=== PATIENT | female | born 1965 | race Caucasian/White ===

== ENCOUNTER → 2019-10-18 17:40 | Outpatient (CLI) | payer OTHER, SELFPAY ==
--- NOTE | ~2019-10-18 | XR_ITS ---
XR knee LT 3V, XR knee RT 3V 10/18/2019 18:12 Indication: Knee pain. Procedure: 3 views of each knee Comparison: No prior studies for comparison. Findings: No fracture, subluxation or dislocation. No significant joint space narrowing. No joint eff usion. No foreign bodies. Impression: 1: No significant bone or joint abnormality. Reviewed, dictated and finalized at location A. Impression: 1: No significant bone or joint abnormality. Impression: 1: No significant bone or joint abnormality.
== END ==
PROVIDERS: PCP Physician Assistant; Visit Provider Physician Assistant
DX: M25.561 Pain in right knee (principal); M25.562 Pain in left knee
CPT/HCPCS: 73562

== ENCOUNTER 2020-01-04 08:19 | Outpatient (CLI) | payer OTHER, SELFPAY ==
--- NOTE | ~2020-01-04 | MM_ITS ---
EXAMINATION: MM screening [facility] BI w [facility] HISTORY: Screening mammogram TECHNIQUE: Craniocaudal and mediolateral oblique 3-D tomosynthesis images were obtained and synthetic 2-D images were generated. CAD analysis was submitted and interpreted. COMPARISON: 12/17/2018, 12/15/2017, 09/09/2016, 03/19/2016, 03/13/2016 BREAST PARENCHYMAL COMPOSITION: The breasts are heterogeneously dense, which may obscure small masses . FINDINGS: There is no evidence of suspicious mass, calcification, or architectural distortion to sugg est malignancy in either breast. There has been no suspicious interval change. IMPRESSION: 1. No mammographic evidence of malignancy. 2. Recommend routine screening mammography in one year. BI-RADS Category 1: Negative Reviewed, dictated and finalized at location A.
== END 2020-01-04 08:20 | disposition home or self-care (01) ==
LOC: ANHIMG 08:22
PROVIDERS: PCP Physician Assistant; Visit Provider Obstetrics & Gynecology
DX: Z12.31 Encounter for screening mammogram for malignant neoplasm of breast (principal)
CPT/HCPCS: 77063; 77067

== ENCOUNTER → 2020-09-13 10:58 | Outpatient (CLI) | payer OTHER, SELFPAY ==
--- NOTE | ~2020-09-13 | US_ITS ---
EXAMINATION: US soft tissue UE LT EXAM DATE: 09/13/2020 11:12 INDICATION: R22.32 - Localized swelling, mass and lump, left upper limb. States lump in antecubital f ronald, noticeably more with exercise. TECHNIQUE: Multiple grayscale and Doppler images of the symptomatic left arm region were obtained (by a technologist who performed the scan) and subsequently reviewed. There is no prior study for monica dudley. FINDINGS: Scanning in the left antecubital area of concern demonstrates normal appearing subcutaneous fat and u nderlying musculature. No mass or abscess identified. IMPRESSION: 1. Unremarkable ultrasound exam. Reviewed, dictated and finalized at location B.
== END ==
PROVIDERS: PCP Family Medicine; Visit Provider Physician Assistant
DX: R22.32 Localized swelling, mass and lump, left upper limb (principal)
CPT/HCPCS: 76882

== ENCOUNTER → 2021-01-03 15:23 | Outpatient (CLI) | payer OTHER, SELFPAY ==
--- NOTE | ~2021-01-03 | XR_ITS ---
XR chest 2V DATE: 01/03/2021 15:52 INDICATION: Cough TECHNIQUE: 2 views, PA and lateral projections COMPARISON: None FINDINGS: Normal heart size. No hilar or mediastinal enlargement. No pulmonary infiltrate or consolid ation, pleural effusion or pulmonary vascular congestion or pneumothorax. Diffuse osteopenia. IMPRESSION: No active cardiopulmonary disease Reviewed, dictated and finalized at location A.
== END ==
PROVIDERS: PCP Family Medicine; Visit Provider Physician Assistant
DX: R05 Cough (principal)
CPT/HCPCS: 71046

== ENCOUNTER 2021-01-15 08:25 | Outpatient (CLI) | payer OTHER, SELFPAY ==
--- NOTE | ~2021-01-15 | MM_ITS ---
EXAMINATION: MM screening [facility] w [facility] HISTORY: Screening mammogram TECHNIQUE: Craniocaudal and mediolateral oblique 3-D tomosynthesis images were obtained and synthetic 2-D images were generated. CAD analysis was submitted and interpreted. COMPARISON: 01/04/2020, 12/17/2018, 12/15/2017 bilateral digital screening mammogram examinations dated e 303 1. BREAST PARENCHYMAL COMPOSITION: The breasts are heterogeneously dense, which may obscure small masses . FINDINGS: There is no evidence of suspicious mass, calcification, or architectural distortion to sugg est malignancy in either breast. There has been no suspicious interval change. IMPRESSION: 1. No mammographic evidence of malignancy. 2. Recommend routine screening mammography in one year. BI-RADS Category 1: Negative Reviewed, dictated and finalized at location A.
== END 2021-01-15 08:26 | disposition home or self-care (01) ==
PROVIDERS: PCP Family Medicine; Visit Provider Obstetrics & Gynecology
DX: Z12.31 Encounter for screening mammogram for malignant neoplasm of breast (principal)
CPT/HCPCS: 77063; 77067

== ENCOUNTER 2021-04-22 12:14 | Outpatient (CLI) | payer OTHER, SELFPAY ==
--- NOTE | ~2021-04-22 | MMUS_ITS ---
EXAMINATION: MM diagnostic [facility] w [facility], US breast RT limited HISTORY: Palpable lump at the 12:00 location of the right breast. TECHNIQUE: Craniocaudal, mediolateral, and mediolateral oblique 3-D tomosynthesis images of the lisha ts were performed and synthetic 2-D images were generated. CAD analysis was submitted and interpreted . High resolution limited right breast ultrasound was performed. COMPARISON: 01/15/2021, 01/04/2020, 12/17/2018, 12/08/2013 BREAST PARENCHYMAL COMPOSITION: The breasts are heterogeneously dense, which may obscure small masses . FINDINGS: MAMMOGRAPHIC FINDINGS: There is no evidence of suspicious mass, calcification, or architectural distortion in either breast to suggest malignancy. There has been no suspicious interval change. No mammographic correlate is id entified for the reported palpable thickening of the right breast. ULTRASOUND: There is a 4 mm x 3 mm oval, circumscribed, parallel, hypoechoic mass with no posterior features or i nternal vascularity at the 12:00 location 3 cm from the nipple in the right breast which is decreased in size since comparison examinations. No suspicious mass is identified. IMPRESSION: 1. No suspicious mammographic or sonographic correlate is identified for the reported increased right breast density. Further evaluation at this time should be based on clinical assessment. Continued fo llow-up physical examination is recommended. 2. Recommend routine screening mammography in one year. BI-RADS Category 2: Benign finding(s). 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 No suspicious mammographic or sonographic correlate is identified for the re ported increased right breast density. Further evaluation at this time should b e based on clinical assessment. Continued follow-up physical examination is rec ommended. 2. Recommend routine screening mammography in one year. BI-RADS Category 2: Benign finding(s).
== END 2021-04-22 12:15 | disposition home or self-care (01) ==
LOC: ANHIMG 12:15
PROVIDERS: PCP Family Medicine; Visit Provider Obstetrics & Gynecology
DX: N63.15 Unspecified lump in the right breast, overlapping quadrants (principal)
CPT/HCPCS: 76642; 77062; 77066; G0279

== ENCOUNTER → 2021-06-19 15:57 | Outpatient (CLI) | payer OTHER, SELFPAY ==
--- NOTE | ~2021-06-19 | XR_ITS ---
EXAMINATION: XR chest 2V EXAM DATE: 06/19/2021 16:18 INDICATION: Cough, unspecified . TECHNIQUE: Frontal and lateral projections of the chest obtained and reviewed. Comparison is made to prior examination from 01/03/2021. FINDINGS: The lungs are hyperinflated which can be seen with chronic obstructive pulmonary disease ( a clinical diagnosis of functional impairment), but is not diagnostic of it. The lungs are clear. Th ere are no pleural effusions. The cardiomediastinal silhouette is within normal limits. There is no pneumothorax suspected. The bones and soft tissues are unremarkable. IMPRESSION: 1. No acute cardiopulmonary findings. 2. Hyperinflation. Reviewed, dictated and finalized at location B. [employer]ATION WORKER HOSING MACHINERY
== END ==
PROVIDERS: PCP Family Medicine; Visit Provider Family Medicine
DX: R05.9 Cough, unspecified (principal)
CPT/HCPCS: 71046

== ENCOUNTER 2022-02-28 10:17 | Outpatient (CLI) | payer OTHER, SELFPAY ==
--- NOTE | ~2022-02-28 | MM_ITS ---
EXAMINATION: MM screening [facility] w [facility] HISTORY: Screening TECHNIQUE: Craniocaudal and mediolateral oblique 3-D tomosynthesis images were obtained and synthetic 2-D images were generated. CAD analysis was submitted and interpreted. COMPARISON: Comparison to multiple prior studies sequentially, with oldest reviewed study dated 11/2017. BREAST PARENCHYMAL COMPOSITION: The breasts are heterogeneously dense, which may obscure small masses FINDINGS: There is no evidence of suspicious mass, calcification, or architectural distortion to sugg est malignancy in either breast. There has been no suspicious interval change. IMPRESSION: 1. No mammographic evidence of malignancy. 2. Recommend routine screening mammography in one year. BI-RADS Category 1: Negative Reviewed, dictated and finalized at location A.
== END 2022-02-28 10:18 | disposition home or self-care (01) ==
LOC: ANHIMG 10:19
PROVIDERS: PCP Family Medicine; Visit Provider Obstetrics & Gynecology
DX: Z12.31 Encounter for screening mammogram for malignant neoplasm of breast (principal)
CPT/HCPCS: 77063; 77067

== ENCOUNTER 2023-04-07 15:10 | Outpatient (CLI) | payer OTHER, SELFPAY ==
--- NOTE | ~2023-04-07 | MM_ITS ---
EXAMINATION: MM screening [facility] w [facility] HISTORY: Screening mammogram TECHNIQUE: Craniocaudal and mediolateral oblique 3-D tomosynthesis images were obtained and synthetic 2-D images were generated. CAD analysis was submitted and interpreted. COMPARISON: 02/28/2022 bilateral screening mammogram 04/22/2021 bilateral diagnostic mammogram and right Limited breast ultrasound examination 01/15/2021, 01/04/2020 bilateral screening mammogram examinations BREAST PARENCHYMAL COMPOSITION: The breasts are heterogeneously dense, which may obscure small masses . FINDINGS: There is no evidence of suspicious mass, calcification, or architectural distortion to sugg est malignancy in either breast. There has been no suspicious interval change. IMPRESSION: 1. No mammographic evidence of malignancy. 2. Recommend routine screening mammography in one year. 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
== END 2023-04-07 15:11 | disposition home or self-care (01) ==
PROVIDERS: PCP Family Medicine; Visit Provider Obstetrics & Gynecology
DX: Z12.31 Encounter for screening mammogram for malignant neoplasm of breast (principal)
CPT/HCPCS: 77063; 77067

== ENCOUNTER 2024-08-29 11:28 | Outpatient (CLI) | payer OTHER, SELFPAY ==
--- NOTE | ~2024-08-29 | US_ITS ---
Pelvic ultrasound. Clinical History: Postmenopausal bleeding Technique: Realtime transabdominal and transvaginal scanning of the pelvis was performed. Color flow Doppler and Doppler spectral analysis were performed. Findings: The uterus is anteverted. The endometrial stripe has a thickness of 4 mm. No focal mass is identified. Neither ovary seen. No adnexal mass seen. There is no evidence of free fluid in the cul de sac. Impression: No abnormal endometrial thickening. Neither ovary seen. Reviewed, dictated and finalized at location M. Impression: No abnormal endometrial thickening. Neither ovary seen.
== END 2024-08-29 11:29 | disposition home or self-care (01) ==
LOC: MICIMG 11:29
PROVIDERS: PCP Nurse Practitioner Family; Visit Provider Nurse Practitioner Family
DX: N95.0 Postmenopausal bleeding (principal)
CPT/HCPCS: 76830; 76856

== ENCOUNTER 2024-09-07 10:08 | Outpatient (CLI) | payer OTHER, SELFPAY ==
--- NOTE | ~2024-09-07 | MM_ITS ---
EXAMINATION: MM screening bryan BI w royal HISTORY: Screening TECHNIQUE: Craniocaudal and mediolateral oblique 3-D tomosynthesis images were obtained and synthetic 2-D images were generated. CAD analysis was submitted and interpreted. COMPARISON: Comparison to multiple prior studies sequentially, with oldest reviewed study dated 01/2019. BREAST PARENCHYMAL COMPOSITION: Dense: The breasts are heterogeneously dense, which may obscure small masses FINDINGS: There is no evidence of suspicious mass, calcification, or architectural distortion to sugg est malignancy in either breast. There has been no suspicious interval change. IMPRESSION: 1. No mammographic evidence of malignancy. 2. Recommend routine screening mammography in one year. BI-RADS Category 1: Negative Reviewed, dictated and finalized at location A.
--- OUTSIDE RECORDS SUMMARY | 2024-09-07 11:20 | XMS_ITS | Referral Summary ---
Author Organization [facility] Address [address] [place] [address] Care Team Providers Care Erosion Control Coordinator Name Role Phone Flavio Guerrero MD Primary Care Provider [phone] Allergies Active Allergy Reactions Criticality Noted Date Comments Erythromycin Stomach upset Low 01/19/2020 Prednisone Shortness of breath,Anxiety High 01/19/20 20 Medications irbesartan-hydro chlorothiazide (AVALIDE) 150-12.5 mg per tablet Take 1 tablet by mouth daily 11/30/2019 Active diclofenac sodium (VOLTAREN) 1 % gel Apply 4 grams to left knee four times a day 5 Tube 2 01/19/2020 Active Active Problems Problem Noted Date Diagnosed Date Pes anserinus bursitis of right knee 02/16/2020 Lipoma of left shoulder 02/16/2020 Pes anserinus bursitis of left knee 01/19/2020 Social History Tobacco Use Types Packs/Day Years Used Date Smoking Tobacco: Never Alcohol Use Standard Drinks/Week Comments Yes 0 (1 standard drink = 0.6 oz pur e alcohol) social Personal Safety Answer Date Recorded Getting School Help Needed Not on file 07/25 Comments Unknown Sex and Gender Information Value Date Recorded Sex Assigned at Not on file Legal Sex Female 9:05 AM CDT Gender Identity Not on file Sexual Orientation Not on file Last Filed Vital Signs Vital Sign Reading Time Taken Comments Blood Pressure - - Pulse - - Temperature - - Respiratory Rate - - Oxygen Saturation - - Inhaled Oxygen Concentration - - Weight 83.9 kg (185 lb) 02/16/2020 3:25 PM CDT Height 160 cm (5' 3 ) 02/16/2020 3:25 PM CDT Body Mass Index 32.77 02/16/2020 3:25 PM CDT Plan of Treatment Not on file Insurance Care Teams Erosion Control Coordinator Relationship Specialty Start Date End Date Flavio Guerrero MD [address] [place] [address] PCP - General Family Medicine 12/30/19
--- OUTSIDE RECORDS SUMMARY | 2024-09-07 11:20 | XMS_ITS | Data Portability ---
Author Organization [facility] [place], Main Office Address [address] [place] [address] Assessment No assessment recorded. Plan of Treatment Reminders Order Date Submit Date Provider Last Modified By Organization Details Last Modified Time Details Appointments None recorded. Lab HbA1c (hemoglobin A1c), blood [email or web address] [place] [address], [address] [place] [address], [address], 3 11:48:24 vitamin D, 25-hydroxy, total, serum [email or web address] [place] [address], [address] [place] [address], [address], 3 11:48:41 CBC w/ auto diff [email or web address] [place] [address], [address] [place] [address], [address], 3 11:47:42 BMP, serum or plasma [email or web address] [place] [address], [address] [place] [address], [address], 3 11:48:01 lipid panel, serum [email or web address], [address] [place] [address], [address], 3 11:36:18 Referral None recorded. Procedures None recorded. Surgeries None recorded. Imaging None recorded. Medication Orders tizanidine 4 mg tablet [address] [facility] #2510, [address] [place], [address], 4 11:20:27 irbesartan 150 mg-hydrochl orothiazide 12.5 mg tablet 2023 024 [facility] [address] [place] [address], [address], 4 11:20:28 fluticasone propionate 50 mcg/actuati on nasal spray,suspe nsion 2023 024 [facility] [address] [place], [address], 4 11:29:32 esomeprazol e magnesium 20 mg capsule,del ayed release 2023 024 [facility] [address] [place], [address], 4 11:26:13 irbesartan 150 mg-hydrochl orothiazide 12.5 mg tablet 2023 024 [facility], [address] [place] [address], [address], 4 11:26:13 fluconazole 150 mg tablet 2022 023 [email or web address] [id number] [facility]/Pharmacy #2510, [address] [place] [address], [address], 4 11:10:08 Patient TargetsNo targets recorded. Patient InstructionsNo instructions recorded. Reason for Referral None Reported. Results Created Date Observation Date Name Description Value Unit Range Abnormal Flag Note LastModifiedBy Organization Detail LastModifiedTime 07/17/19 23 07/16/2022 CBC/C OMPLE TE BLD COUNT W/DIF F white blood cells 8.1 x10'3 /uL 4.2-10 .8 Not Available [facility] (Lab) [address] [place], [address], 07/16/2022 19:32:51 07/17/19 23 07/16/2022 CBC/C OMPLE TE BLD COUNT W/DIF F red blood cells 4.20 x10'6 /uL 3.80-5 .20 Not Available [facility] (Lab) [address] [place], [address], 07/16/2022 19:32:51 07/17/19 23 07/16/2022 CBC/C OMPLE TE BLD COUNT W/DIF F hemoglobin 13.0 g/dL 12.0-1 5.6 Not Available [facility] (Lab) [address] [place], [address], 07/16/2022 19:32:51 07/17/19 23 07/16/2022 CBC/C OMPLE TE BLD COUNT W/DIF F hematocrit 39.5 % 35.7-4 5.7 Not Available [facility] (Lab) [address] [place], [address], 07/16/2022 19:32:51 07/17/19 23 07/16/2022 CBC/C OMPLE TE BLD COUNT W/DIF F mean red cell volume 94.0 fL 82.0-9 9.0 Not Available [facility] (Lab) [address] [place], [address], 07/16/2022 19:32:51 07/17/19 23 07/16/2022 CBC/C OMPLE TE BLD COUNT W/DIF F mean red cell hemoglobin 31.0 pg 27.0-3 3.0 Not Available [facility] (Lab) [address] [place], [address], 07/16/2022 19:32:51 07/17/19 23 07/16/2022 CBC/C OMPLE TE BLD COUNT W/DIF F mean RBC HGB concentratio n 32.9 g/dL 31.0-3 6.0 Not Available [facility] (Lab) [address] [place], [address], 07/16/2022 19:32:51 07/17/1907/16/2022 CBC/C OMPLE TE BLD COUNT W/DIF F red cell distribution width 13.1 % 11.8-1 5.5 Not Available [facility] (Lab) [address] [place], [address], 07/16/2022 19:32:51 07/17/19 23 07/16/2022 CBC/C OMPLE TE BLD COUNT W/DIF F platelets 337 x10'3 /uL 150-40 0 Not Available [facility] (Lab) [address] [place], [address], 07/16/2022 19:32:51 07/17/19 23 07/16/2022 CBC/C OMPLE TE BLD COUNT W/DIF F mean platelet volume 10.5 fL 9.0-12 .4 Not Available [facility] (Lab) [address] [place], [address], 07/16/2022 19:32:51 07/17/1907/16/2022 CBC/C OMPLE TE BLD COUNT W/DIF F neutrophils 59.2 % 39.0-7 2.0 Not Available [facility] (Lab) [address] [place], [address], 07/16/2022 19:32:51 07/17/19 23 07/16/2022 CBC/C OMPLE TE BLD COUNT W/DIF F lymphocytes 30.8 % 16.0-4 7.0 Not Available [facility] (Lab) [address] [place], [address], 07/16/2022 19:32:51 07/17/19 23 07/16/2022 CBC/C OMPLE TE BLD COUNT W/DIF F monocytes 6.7 % 5.0-12 .0 Not Available [facility] (Lab) [address] [place], [address], 07/16/2022 19:32:51 07/17/1907/16/2022 CBC/C OMPLE TE BLD COUNT W/DIF F eosinophils 2.3 % 1.0-7. 0 Not Available [facility] (Lab) [address] [place], [address], 07/16/2022 19:32:51 07/17/19 23 07/16/2022 CBC/C OMPLE TE BLD COUNT W/DIF F basophils 0.6 % 0.0-2. 0 Not Available [facility] (Lab) [address] [place], [address], 07/16/2022 19:32:51 07/17/1907/16/2022 CBC/C OMPLE TE BLD COUNT W/DIF F immature granulocytes 0.4 % 0.00-0 .50 Not Available [facility] (Lab) [address] [place], [address], 07/16/2022 19:32:51 07/17/19 23 07/16/2022 CBC/C OMPLE TE BLD COUNT W/DIF F neutrophils, absolute count 4.79 x10'3 /uL 1.5-8. 0 Not Available [facility] (Lab) [address] [place], [address], 07/16/2022 19:32:51 07/17/19 23 07/16/2022 CBC/C OMPLE TE BLD COUNT W/DIF F lymphocytes, absolute count 2.49 x10'3 /uL 1.07-3 .43 Not Available [facility] (Lab) [address] [place], [address], 07/16/2022 19:32:51 07/17/19 23 07/16/2022 CBC/C OMPLE TE BLD COUNT W/DIF F monocytes, absolute count 0.54 x10'3 /uL 0.29-0 .99 Not Available [facility] (Lab) [address] [place], [address], 07/16/2022 19:32:51 07/17/19 23 07/16/2022 CBC/C OMPLE TE BLD COUNT W/DIF F eosinophils, absolute count 0.19 x10'3 /uL 0.02-0 .53 Not Available [facility] (Lab) [address] [place], [address], 07/16/2022 19:32:51 07/17/19 23 07/16/2022 CBC/C OMPLE TE BLD COUNT W/DIF F basophils, absolute count 0.05 x10'3 /uL 0.01-0 .08 Not Available [facility] (Lab) [address] [place], [address], 07/16/2022 19:32:51 07/17/19 23 07/16/2022 CBC/C OMPLE TE BLD COUNT W/DIF F immature granulocytes ,absolute 0.03 x10'3 /uL 0.00-0 .05 Not Available [facility] (Lab) [address] [place], [address], 07/16/2022 19:32:51 07/17/19 23 07/16/2022 CBC/C OMPLE TE BLD COUNT W/DIF F nucleated red blood cells 0.0 % -0 Not Available [facility] (Lab) [address] [place], [address], 07/16/2022 19:32:51 07/17/19 23 07/16/2022 CBC/C OMPLE TE BLD COUNT W/DIF F NRBC# 0.00 x10'3 /uL Not Available [facility] (Lab) [address] [place], [address], 07/16/2022 19:32:51 07/17/19 23 07/16/2022 LIPID PANEL cholesterol 139 mg/dL 140-19 9 low NIH BRIANNE NSUS RECOM MENDA TION FOR NICO STERO L: ADULT CHILD LOW RISK: <200 <170 BORDE RLINE : <200- 239 ----- HIGH RISK: >240 >200 Not Available [facility] (Lab) [address] [place], [address], 07/16/2022 19:46:49 07/17/19 23 07/16/2022 LIPID PANEL triglyceride s 91 mg/dL 0-150 NIH BRIANNE NSUS REPOR T RECOM MENDA TION FOR TRIGL YCERI VINOD: ADULT CHILD LOW RISK: <150 ----- BODER LINE: 150-1 99 ----- HIGH RISK: >200 ----- Not Available [facility] (Lab) [address] [place], [address], 07/16/2022 19:46:49 07/17/19 23 07/16/2022 LIPID PANEL HDL cholesterol 61 mg/dL 40- Not Available [facility] (Lab) [address] [place], [address], 07/16/2022 19:46:49 07/17/19 23 07/16/2022 LIPID PANEL LDL cholesterol, calculated 60 mg/dL 0-130 NIH BRIANNE NSUS REPOR T RECOM MENDA TIONS FOR LDL: ADULT CHILD LOW RISK <130 <110 (OPTI MAL LDL) <100 ----- BORDE RLINE : 130-1 59 ----- HIGH RISK: >160 >130 A TRIGL YCERI DE RESUL T >400 INVAL IDATE S THE CALCU LATIO N FOR LDL FRACT IONAT ION - THE LDL RESUL T WILL NOT BE REPOR MELODY. Not Available [facility] (Lab) [address] [place], [address], 07/16/2022 19:46:49 07/17/19 23 07/16/2022 BASIC METAB OLIC PANEL sodium 138 mmol/ L 137-14 5 Not Available [facility] (Lab) [address] [place], [address], 07/16/2022 19:46:55 07/17/19 23 07/16/2022 BASIC METAB OLIC PANEL potassium 3.6 mmol/ L 3.5-5. 1 Not Available [facility] (Lab) [address] [place], [address], 07/16/2022 19:46:55 07/17/19 23 07/16/2022 BASIC METAB OLIC PANEL chloride 104 mmol/ L 98-107 Not Available [facility] (Lab) [address] [place], [address], 07/16/2022 19:46:55 07/17/19 23 07/16/2022 BASIC METAB OLIC PANEL carbon dioxide 27 mmol/ L 22-30 Not Available [facility] (Lab) [address] [place], [address], 07/16/2022 19:46:55 07/17/19 23 07/16/2022 BASIC METAB OLIC PANEL anion gap 10.6 mmol/ L 14-22 low Not Available [facility] (Lab) [address] [place], [address], 07/16/2022 19:46:55 07/17/19 23 07/16/2022 BASIC METAB OLIC PANEL glucose 99 mg/dL 70-99 Not Available [facility] (Lab) [address] [place], [address], 07/16/2022 19:46:55 07/17/19 23 07/16/2022 BASIC METAB OLIC PANEL BUN 14 mg/dL 8-19 Not Available [facility] (Lab) [address] [place], [address], 07/16/2022 19:46:55 07/17/19 23 07/16/2022 BASIC METAB OLIC PANEL creatinine 0.57 mg/dL 0.66-1 .25 low Not Available [facility] (Lab) [address] [place], [address], 07/16/2022 19:46:55 07/17/19 23 07/16/2022 BASIC METAB OLIC PANEL GFR >60 Refer ence Range : [place] ge GFR Healt hy Adult : >60 mL/mi n/1.7 3 m2 Chron ic Kidne y Disea se: 15-60 mL/mi n/1.7 3 m2 Kidne y Failu re: <15/m L/min /1.73 m2 www.n iddk. nih.g ov The MDRD study equat ion has not been valid ated in child aury <18 years of age; pregn ant women ; the elder ly >85 years of age; or in some racia l or ethni c subgr oups, such as Hispa nics. Outsi de the valid ated alison eters , estim ated GFR is less accur ate, requi ring clini nilda judgm ent on a case- by-ca se basis . Clini nilda inter preta tion for other races and ages must be made by the clini herlinda. The MDRD study equat ion has not been valid ated for the evalu ation of serum creat inine relat ed to nutri paola l statu s or medic ation usage . For perso ns <18 years of age, a pedia tric GFR calcu lator is avail able on the [facility] websi te: https ://richard forbes.archana bull/pr ofess ional s/kdo qi/gf r_cal culat or Not Available [facility] (Lab) [address] [place], [address], 07/16/2022 19:46:55 07/17/1907/16/2022 BASIC METAB OLIC PANEL calcium 9.6 mg/dL 8.4-10 .2 Not Available [facility] (Lab) [address] [place], [address], 07/16/2022 19:46:55 07/17/19 23 07/16/2022 VITAM IN D 25-HY DROXY vd25oh 26.7 NG/mL 30-100 low Vitam in D Statu s: Defic ient: <20 ng/mL Insuf ficie nt: 20-29 ng/mL Suffi cient : 30-10 0 ng/mL Not Available [facility] [address] [place], [address], 07/16/2022 20:08:51 07/17/19 23 07/17/2022 HEMOG LOBIN A1C HA1C 5.3 % 4.0-6. 0 Diabe jamshid Scree latricia Crite loida: <5.7% Consi stent with absen ce of diabe jamshid 5.7-6 .4% Consi stent with incre ased risk for diabe jamshid (pred iabet es) >OR=6 .5% Consi stent with diabe jamshid REFER ENCE: Diabe jamshid Care 2016, 39(Montez ppl.1 ):s13 -s22 Not Available [facility] (Lab) [address] [place], [address], 07/17/2022 09:41:33 07/07/19 24 07/08/2023 LIPID PANEL , STAND JULIO cholesterol, total 131 mg/dL <200 normal Not Available [facility] [address] [address] [place], [address], 07/08/2023 03:22:25 07/07/19 24 07/08/2023 LIPID PANEL , STAND JULIO HDL cholesterol 60 mg/dL > or = 50 normal Not Available [facility] [address] [address] [place], [address], 07/08/2023 03:22:25 07/07/19 24 07/08/2023 LIPID PANEL , STAND JULIO triglyceride s 80 mg/dL <150 normal Not Available [facility] [address] [address] [place], [address], 07/08/2023 03:22:25 07/07/19 24 07/08/2023 LIPID PANEL , STAND JULIO LDL-choleste rol 55 mg/dL _(nilda c) normal Refer ence range : <100 Manuel able range <100 mg/dL for prima ry preve ntion ; <70 mg/dL for patie nts with CHD or diabe tic patie nts with > or = 2 CHD risk facto rs. LDL-C is now calcu lated using the [facility] n-Hop kins calcu evelyn n, which is a valid ated novel metho d provi henry sylvia r accur acy than the Fried antwan equat ion in the estim ation of LDL-C . Iwona damian SS et al. PURVI. 2013; 310(1 9): 2061- 2068 (http ://ed ucati on.Spazzles. [facility]/f aq/FA Q164) Not Available [facility] [address] [address] [place], [address], 07/08/2023 03:22:25 07/07/19 24 07/08/2023 LIPID PANEL , STAND JULIO chol/HDLC ratio 2.2 (calc ) <5.0 normal Not Available [facility] [address] [address] [place], [address], 07/08/2023 03:22:25 07/07/19 24 07/08/2023 LIPID PANEL , STAND JULIO non HDL cholesterol 71 mg/dL _(nilda c) <130 normal For patie nts with diabe jamshid plus 1 major ASCVD risk facto r, treat ing to a non-H DL-C goal of <100 mg/dL (LDL- C of <70 mg/dL ) is consi dered a thera peuti c optio n. Not Available [facility] [address] [address] [place], [address], 07/08/2023 03:22:25 07/07/1907/08/2023 BASIC METAB OLIC PANEL glucose 92 mg/dL 65-99 normal Fasti ng refer ence inter tao Not Available [facility] [address] [place], [address], 07/08/2023 03:22:26 07/07/19 24 07/08/2023 BASIC METAB OLIC PANEL urea nitrogen (BUN) 16 mg/dL 7-25 normal Not Available [address], [address], 07/08/2023 03:22:26 07/07/19 24 07/08/2023 BASIC METAB OLIC PANEL creatinine 0.72 mg/dL 0.50-1 .03 normal Not Available [address], [address], 07/08/2023 03:22:26 07/07/19 24 07/08/2023 BASIC METAB OLIC PANEL eGFR 97 mL/mi n/1.7 3m2 > or = 60 normal Not Available [address], [address], 07/08/2023 03:22:26 07/07/19 24 07/08/2023 BASIC METAB OLIC PANEL BUN/creatini ne ratio SEE NOTE: (calc ) 6-22 Not Repor melody: BUN and Creat inine are withi n refer ence range . Not Available [address], [address], 07/08/2023 03:22:26 07/07/19 24 07/08/2023 BASIC METAB OLIC PANEL sodium 138 mmol/ L 135-14 6 normal Not Available [address], [address], 07/08/2023 03:22:26 07/07/19 24 07/08/2023 BASIC METAB OLIC PANEL potassium 3.8 mmol/ L 3.5-5. 3 normal Not Available [address], [address], 07/08/2023 03:22:26 07/07/19 24 07/08/2023 BASIC METAB OLIC PANEL chloride 102 mmol/ L 98-110 normal Not Available [address], [address], 07/08/2023 03:22:26 07/07/19 24 07/08/2023 BASIC METAB OLIC PANEL carbon dioxide 28 mmol/ L 20-32 normal Not Available [address], [address], 07/08/2023 03:22:26 07/07/19 24 07/08/2023 BASIC METAB OLIC PANEL calcium 9.6 mg/dL 8.6-10 .4 normal Not Available [address], [address], 07/08/2023 03:22:26 07/07/19 24 07/08/2023 CBC (INCL UDES DIFF/ PLT) white blood cell count 7.5 thous and/u L 3.8-10 .8 normal Not Available [address], [address], 07/08/2023 03:22:27 07/07/19 24 07/08/2023 CBC (INCL UDES DIFF/ PLT) red blood cell count 4.20 amber on/uL 3.80-5 .10 normal Not Available [address], [address], 07/08/2023 03:22:27 07/07/19 24 07/08/2023 CBC (INCL UDES DIFF/ PLT) hemoglobin 13.1 g/dL 11.7-1 5.5 normal Not Available [address], [address], 07/08/2023 03:22:27 07/07/19 24 07/08/2023 CBC (INCL UDES DIFF/ PLT) hematocrit 39.5 % 35.0-4 5.0 normal Not Available [address], [address], 07/08/2023 03:22:27 07/07/19 24 07/08/2023 CBC (INCL UDES DIFF/ PLT) MCV 94.0 fL 80.0-1 00.0 normal Not Available [address], [address], 07/08/2023 03:22:27 07/07/19 24 07/08/2023 CBC (INCL UDES DIFF/ PLT) MCH 31.2 pg 27.0-3 3.0 normal Not Available [address], [address], 07/08/2023 03:22:27 07/07/19 24 07/08/2023 CBC (INCL UDES DIFF/ PLT) MCHC 33.2 g/dL 32.0-3 6.0 normal Not Available [address], [address], 07/08/2023 03:22:27 07/07/19 24 07/08/2023 CBC (INCL UDES DIFF/ PLT) RDW 12.9 % 11.0-1 5.0 normal Not Available [address], [address], 07/08/2023 03:22:27 07/07/19 24 07/08/2023 CBC (INCL UDES DIFF/ PLT) platelet count 314 thous and/u L 140-40 0 normal Not Available [address], [address], 07/08/2023 03:22:27 07/07/19 24 07/08/2023 CBC (INCL UDES DIFF/ PLT) MPV 10.6 fL 7.5-12 .5 normal Not Available [address], [address], 07/08/2023 03:22:27 07/07/19 24 07/08/2023 CBC (INCL UDES DIFF/ PLT) absolute neutrophils 4193 cells /uL 1500-7 800 normal Not Available [address], [address], 07/08/2023 03:22:27 07/07/19 24 07/08/2023 CBC (INCL UDES DIFF/ PLT) absolute lymphocytes 2655 cells /uL 850-39 00 normal Not Available [address], [address], 07/08/2023 03:22:27 07/07/19 24 07/08/2023 CBC (INCL UDES DIFF/ PLT) absolute monocytes 413 cells /uL 200-95 0 normal Not Available [address], [address], 07/08/2023 03:22:27 07/07/19 24 07/08/2023 CBC (INCL UDES DIFF/ PLT) absolute eosinophils 180 cells /uL 15-500 normal Not Available [address], [address], 07/08/2023 03:22:27 07/07/19 24 07/08/2023 CBC (INCL UDES DIFF/ PLT) absolute basophils 60 cells /uL 0-200 normal Not Available [address], [address], 07/08/2023 03:22:27 07/07/19 24 07/08/2023 CBC (INCL UDES DIFF/ PLT) neutrophils 55.9 % normal Not Available [address], [address], 07/08/2023 03:22:27 07/07/19 24 07/08/2023 CBC (INCL UDES DIFF/ PLT) lymphocytes 35.4 % normal Not Available [address], [address], 07/08/2023 03:22:27 07/07/19 24 07/08/2023 CBC (INCL UDES DIFF/ PLT) monocytes 5.5 % normal Not Available [facility] [address] [place], [address], 07/08/2023 03:22:27 07/07/19 24 07/08/2023 CBC (INCL UDES DIFF/ PLT) eosinophils 2.4 % normal Not Available [facility] [address] [address] [place], [address], 07/08/2023 03:22:27 07/07/19 24 07/08/2023 CBC (INCL UDES DIFF/ PLT) basophils 0.8 % normal Not Available [facility] [address] [address] [place], [address], 07/08/2023 03:22:27 07/07/19 24 07/08/2023 VITAM IN D,25- OH,TO ISAAC,I A vitamin D,25-oh,tota l,ia 55 NG/mL 30-100 normal Vitam in D Statu s 25-OH Vitam in D: Defic iency : <20 ng/mL Insuf ficie ncy: 20 - 29 ng/mL Optim al: > or = 30 ng/mL For 25-OH Vitam in D testi ng on patie nts on D2-montez pplem entat ion and patie nts for whom quant itati on of D2 and D3 fract ions is requi red, the [facility] eD(TM ) 25-OH VIT D, (D2,D 3), LC/MS /MS is recom kyrie d: order code 37507 (roseanna ents >2yrs ). See Note 1 Note 1 For addit ional infor sachin melton refer to http: //elsy damian.Mikhail stDia gnost ics.c om/fa q/FAQ 199 (This link is being provi ded for infor michaela reyes/ queta arciniega purpo ses only. ) Not Available [facility] [address] [address] [address], [place], [address], 07/08/2023 03:22:28 07/07/19 24 07/08/2023 HEMOG LOBIN A1C hemoglobin A1C 5.4 %_of_ total _HGB <5.7 normal For the purpo se of scree latricia for the prese nce of diabe jamshid: <5.7% Consi stent with the absen ce of diabe jamshid 5.7-6 .4% Consi stent with incre ased risk for diabe jamshid (pred iabet es) > or =6.5% Consi stent with diabe jamshid This assay resul t is consi stent with a decre ased risk of diabe jamshid. Curre ntly, no conse nsus exist s regar henry use of hemog lobin A1c for diagn osis of diabe jamshid in child aury. Accor ding to Ameri can Diabe jamshid Assoc iatio n (ADA) guide lines , hemog lobin A1c <7.0% repre sents optim al contr ol in non-p regna nt diabe tic patie nts. Diffe rent metri cs may apply to speci fic patie nt popul ation s. Stand ards of Medic al Care in Diabe jamshid(A DA). This test was perfo rmed on the [facility]bot t Ar[employer] tect c8000 platf orm. Pleas e be advis ed that [facility] will move hemog lobin A1c testi ng to the Lanie platf orm soon. In gener al, direc t monica rison of the resul ts from diffe rent platf orms is not recom kyrie d. Not Available [facility] [address], [place], [address], 07/08/2023 03:22:29 04/07/20 23 04/07/2023 MAMMO , scree latricia, digit al, bilat eral No observ ation record ed. [address] [facility] [address], [place], [address], 07/20/2023 11:24:23 Result Notes None recorded. Problems Name Problem SNOMED Code Status Onset Date Resolution Date Notes Provider Name and Address Organization Details Recorded Time Essential hypertension 02712074 Active 2021 Not Available [facility] 3 00:27:20 Allergic rhinitis 76911433 Active 2022 Adela Hernandez MD [address], [place], [address] , [place] [facility] 3 11:14:58 Hyperglycemia 71558963 Active 2022 Aedla Hernandez MD [address], [address], [place], [address] , [place] [facility] 3 11:22:21 Vitamin D deficiency 10664907 Active 2022 Adela Hernandez MD [address], [place], [address] , [place] [facility] 3 11:22:43 COVID-19 135376161 Active 2022 Adela Hernandez MD [address], [place], [address] , [place] [facility] 3 13:17:34 Cough 57743896 Active 2022 Adela Hernandez MD [address], [place], [address] , [facility] 3 13:28:28 Candidiasis of vagina 72415987 Active 2022 MAX Tenorio [address], [place], [address] , [place] [facility] 3 10:41:03 Gastroesophag eal reflux disease 311612311 Active 2022 Adela Hernandez MD [address], [place], [address] , [place] [facility] 3 15:49:26 Gastroesophag eal reflux disease without esophagitis 499166532 Active 2023 Adela Hernandez MD [address], [place], [address] , [place] [facility] 4 07:36:16 Neck pain 18730757 Active 2023 MAREN Vizcarra [address], [address], [place], [address] , [facility] [employer] 4 11:10:38 Problem Notes None recorded. Procedures Surgical History None recorded. Imaging Results Imaging Date Name Status LastModified by Organiz ation Details LastModified Time 04/07/2023 MAMMO, screening, digital, bilateral completed [facility] [address], [place], [address], 07/20/2023 11:24:23 Procedure Notes None recorded. Medical Equipment None Reported. Allergies Allergen ID Allergen Name Allergen Category Reaction Reaction Severity Criticality Documentation Date Start Date Code Code System Note Provider Name and Address Organization Details Recorded Time 08484 prednison e medicatio n Not available Not available Not available 07/10/2022 8640 RxNorm anxie ty Not Available [facility] 3 00:28:07 62512 metronida zole medicatio n hives Not available Not available 07/10/2022 6922 RxNorm Not Available [facility] 3 00:28:07 60525 erythromy kate medicatio n other Not available Not available 07/10/2022 4053 RxNorm stoma ch cramp scan take zpack Not Available [facility] 3 00:28:08 52748 Erythroci n medicatio n Not available Not available Not available 07/10/2022 54921 3 RxNorm Not Available [facility] 3 00:28:08 33428 Paxlovid medicatio n hives Not available Not available 10/08/2022 49608 5 ANJELK Nevaeh Durand RN null, [facility] [employer] 3 10:19:44 Medications Name Sig Start Date Stop Date Status Note LastModified by Organization Details LastModified Time blood pressu solution kit active Not Available Not Available Not Available doxycycline hyclate 100 mg capsule 06/05 completed Not Available Not Available Not Available irbesartan 150 mg-hydrochl orothiazide 12.5 mg tablet 1 po qday 2023 active Not Available Not Available Not Avai lable azithromyci n 250 mg tablet TAKE 2 TABLETS BY MOUTH TODAY, THEN TAKE 1 TABLET DAILY FOR 4 DAYS 10/08 completed Not Available Not Available Not Available Lidocaine Viscous 2 % mucosal solution active Not Available Not Available Not Available tizanidine 4 mg tablet TAKE 1 TABLET BY MOUTH EVERY 6 HOURS active Not Available Not Available No t Available fluconazole 150 mg tablet TAKE 1 TABLET BY MOUTH EVERY DAY FOR 3 DAYS 07/19 completed Not Available Not Available Not Available benzonatate 200 mg capsule TAKE 1 CAPSULE BY MOUTH THREE TIMES DAILY NEEDED 07/19 completed Not Available Not Available Not Available prednisone 20 mg tablet Take 2 tablets every day by oral route for 5 days. 10/08 completed Not Available Not Available Not Available clobetasol 0.05 % topical cream APPLY TO AFFECTED VAGINAL AREA TWICE DAILY FOR 14 DAYS THEN ONCE A DAY FOR 1 TO 2 WEEKS active Not Available Not Available No t Available triamcinolo ne acetonide 0.5 % topical ointment 1 APPLIC TOPICALLY TWICE A DAY NEEDED FOR MILD IRRITATIO N active Not Available Not Available No t Available valacyclovi r 500 mg tablet TAKE 1 TABLET BY MOUTH EVERY 12 HOURS active Not Available Not Available No t Available benzonatate 100 mg capsule 06/05 completed Not Available Not Available Not Available dexamethaso ne 4 mg tablet Take 1 tablet twice a day by oral route for 5 days. 07/19 completed Not Available Not Available Not Available irbesartan 150 mg tablet TAKE 1 TABLET BY MOUTH EVERY DAY active Not Available Not Available No t Available methylpredn isolone 4 mg tablets in a dose pack 06/05 completed Not Available Not Available Not Available albuterol sulfate HFA 90 mcg/actuati on aerosol inhaler 06/05 completed Not Available Not Available Not Available fluticasone propionate 50 mcg/actuati on nasal spray,suspe nsion USE 2 SPRAYS IN EACH NOSTRIL DAILY active Not Available Not Available No t Available doxycycline hyclate 100 mg tablet TAKE 1 TABLET BY MOUTH TWICE A DAY FOR 7 DAYS 07/19 completed Not Available Not Available Not Available loratadine 10 mg tablet Take 1 tablet every day by oral route. active Not Available Not Available No t Available esomeprazol e magnesium 20 mg capsule,del ayed release TAKE 1 CAPSULE BY MOUTH EVERY DAY active Not Available Not Available No t Available dexlansopra zole 60 mg capsule,bip hase delayed release Take 1 capsule every day by oral route. 07/19 completed Not Available Not Available Not Available Paxlovid 300 mg (150 mg x 2)-100 mg tablets in a dose pack TAKE 1 DOSE BY MOUTH TWICE A DAY FOR 5 DAYS 07/19 completed Not Available Not Available Not Available Vitals Date Recorded Body height Body mass index (BMI) Body weight Body temperature Oxygen saturation Oxygen saturation in Arterial blood by Pulse oximetry Heart rate Systolic blood pressure Diastolic blood pressure Provider Name and Address Organization Details Last Updated DateTime 3 162.56 cm 32.8 kg/m2 05090.1 4 g 98.7 [degF] 100 % 100 % 80 /min 146 mm[Hg] 92 mm[Hg] Jm Wiggins CMA [facility] [employer] 3 11:03:45 Date Recorded Body height Body mass index (BMI) Body weight Body temperature Heart rate Oxygen saturation Oxygen saturation in Arterial blood by Pulse oximetry Systolic blood pressure Diastolic blood pressure Provider Name and Address Organization Details Last Updated DateTime 3 162.56 cm 32.4 kg/m2 79470.9 6 g 97.8 [degF] 95 /min 96 % 96 % 132 mm[Hg] 80 mm[Hg] Nevaeh Durand RN [facility] [employer] 3 10:18:44 Date Recorded Body height Provider Name an d Address Organization Details Last Updated DateTime 02/24/2023 162.56 cm Liss Corrales LPN [facility] [employer] [facility] 02/24/2023 12:25:09 Date Recorded Body height Body mass index (BMI) Body weight Body temperature Heart rate Oxygen saturation Oxygen saturation in Arterial blood by Pulse oximetry Systolic blood pressure Diastolic blood pressure Provider Name and Address Organization Details Last Updated DateTime 4 162.56 cm 31.8 kg/m2 99353.5 9 g 89.83 [degF] 73 /min 97 % 97 % 140 mm[Hg] 82 mm[Hg] Krysten Mejias RN [facility] [employer] [facility] 4 11:09:36 Date Recorded Body height Body mass index (BMI) Body weight Body temperature Heart rate Oxygen saturation Oxygen saturation in Arterial blood by Pulse oximetry Systolic blood pressure Diastolic blood pressure Provider Name and Address Organization Details Last Updated DateTime 4 162.56 cm 30.6 kg/m2 67420.4 4 g 98.4 [degF] 80 /min 100 % 100 % 140 mm[Hg] 84 mm[Hg] Liberty Cedeno RN [place] [facility] [place] [employer] [facility] 4 11:06:09 Social History Question Answer Notes LastModified by Organizat ion Details LastModified Time Tobacco Smoking Status Never Smoker Not Available [facility] 07/10/2022 00:26:14 What Is Your Level Of Alcohol Consumption? Occasional Information not available 10/08/2022 What Is Your Level Of Caffeine Consumption? Occasional Information not available 10/08/2022 What Type Of Diet Are You Following? REGULAR [id number] Information not available 07/10/2022 What Was The Date Of Your Most Recent Tobacco Screening? 07/20/2023 [email or web address] Information not available 07/20/2023 Do You Feel Stressed (tense, Restless, Nervous, Or Anxious, Or Unable To Sleep At Night)? [id number] Information not available 10/08/2022 Do You Use Any Illicit Or Recreational Drugs? No Information not available 10/08/2022 Sex: Unknown Functional Status None recorded. Mental Status None recorded. Family History Relationship Description Onset Age of this Age Resolved Age Notes LastModified by Organization Details LastModified Time Father Hypertensive disorder [id number] Not available 07/10/2022 00:26:41 Brother Hypertensive disorder [id number] Not available 07/10/2022 00:26:41 Brother Malignant tumor of pancreas 59 [id number] Not available 07/10/2022 00:26:41 Sister Hypertensive disorder [id number] Not available 07/10/2022 00:26:41 Medical History No medical history recorded. Gynecological History Statement/Question Response How many live births 1 Colposcopy Current Control Method Menopause Breast Problems no Discharge no Obstetrics History GPAL:G 1 P 0 0 0 1 Type Value Living 1 Total 1 Immunizations Vaccine Type Date Status Note Provider Nam e and Address Organization Details Recorded Time COVID-19, mRNA, LNP-S, PF, 30 mcg/0.3 mL dose 2 completed Not Available [facility] 07/10/2022 00:28:04 Influenza, split virus, quadrivalent, preservative 1 completed Not Available [facility] 07/10/2022 00:28:05 COVID-19, mRNA, LNP-S, PF, 30 mcg/0.3 mL dose 1 completed Not Available [facility] 07/10/2022 00:28:05 COVID-19, mRNA, LNP-S, PF, 30 mcg/0.3 mL dose 1 completed Not Available [facility] 07/10/2022 00:28:05 Influenza, split virus, quadrivalent, PF 2 completed Not Available [facility] 07/10/2022 00:28:05 Influenza, split virus, quadrivalent, PF 3 completed KIMBERLY Brown [place] [facility] 02/24/2023 12:32:23 Past Encounters Encounter ID Performer Location Encounter Start Date Encounter Closed Date Diagnosis/Indication Diagnosis SNOMED-CT Code Diagnosis ICD10 Code Diagnosis Note [id number] Adela Hernandez MD [facility] Primary Care [place] [address] [facility] [address] [place] [address] 06/05/2021 00:00:00 06/10/2021 17:57:14 [id number] Adela Hernandez MD [facility] Primary Care [place] [address] [facility] [address] [place] [address] 07/17/2021 00:00:00 07/17/2021 11:58:31 [id number] Adela Hernandez MD [facility] [place] [address] [facility] [address] [place] [address] 01/16/2022 00:00:00 01/16/2022 11:55:43 [id number] THOR Us [facility] Primary [facility] [place] [address] [facility] [address] [place] [address] 03/04/2022 00:00:00 03/04/2022 15:59:48 [id number] Adela Hernandez MD [facility] Primary Care [facility] [address] [facility] [address] [place] [address] 07/16/2022 10:57:04 07/16/2022 11:33:45 Adult health examination 533081937 Z00.00 Z13.220 Cologuard normal 08/01/2021 repeat 2024Sees yard specialist for paps, mammogram, DEXACheck fasting labsShingl es vaccine recommende dCovid bivalent booster recommende d Essential hypertension 57323328 I10 in excellent control per home readingsco ntinue daily exercise and irbesartan /hctz 150/12.5 mg daily Allergic rhinitis 763627 04 J30.9 can try otc fexofenadi ne 180 mg dailyif no improvemen t can do trial of fluticason e Hyperglycemia 93958618 R 73.9 Vitamin D deficiency 347 14055 E55.9 [id number] MAX Tenorio [facility] Primary Care [facility] [address] [facility] [address] [place] [address] 10/08/2022 10:08:52 10/08/2022 10:56:40 Suspected COVID-19 830790499 Z20.822 Never tested positive, suspect false neg result d/t pt having same sx as and length of sx.Reassur ed pt that she is outside the window of contagion at this time. Discussed at length that many covid sx (fatigue, cough, sob, bodyaches, loss sense of taste/smel l) may linger for an extended period of time. Discussed s/s that warrant emergent evaluation (high fever, worsening sob, new onset sx).Encour aged pt to try taking the dexamethas one to reduce sx. Candidiasis of vagina 72 456784 B37.31 New problemRev iewed the various causes of vaginal problems. Reviewed good vulvar/vag inal hygiene and ways to reduce symptoms. Advised to call if treatment is not helpful or if symptoms persist or recur. [id number] Adela Hernandez MD [facility] Primary Care [facility] [address] [facility] [address] [place] [address] 02/24/2023 12:24:12 02/24/2023 13:11:59 [id number] Adela Hernandez MD [facility] Primary Care [place] [address] [facility] [address] [place] [address] 07/20/2023 11:02:54 07/20/2023 11:36:26 Adult health examination 059271161 Z00.00 Z13.220 Cologuard normal 08/01/2021 repeat 2024Sees yard specialist for paps, mammogram, DEXACheck fasting labsShingl es vaccine recommende dRecommend yearly flu annually and covid booster Essential hypertension 50680578 I10 in excellent control per home readingsco ntinue daily exercise and irbesartan /hctz 150/12.5 mg daily Gastroesop hageal reflux disease without esophagitis 178381419 K21.9 stablerefi ll given Allergic rhinitis 195389 04 J30.9 try flonase + claritin or fexofenadi ne [id number] MAREN Vizcarra [facility] Primary Care Angi of[place] [address] [facility] [address] [place] [address] 01/20/2024 10:59:12 01/20/2024 11:23:09 Neck pain 13840950 M54.2 neck pain for the last couple monthstria l tizanidine Essential hypertension 00245274 I10 Health Concerns Section Related Observation LastModified by Organization Detai ls LastModified Time None Recorded Concern Status LastModified by Organization Details LastModified Time None Recorded Advance Directives Directive None Recorded Payers Encounter Date Sequence Insurance Name Policy Number Policy Junior Covered Member ID Junior Member ID Guarantor Name 07/16/2022 1 HENNA Alonso [id number] Ambika Alonso 10/08/2022 1 HENNA Alonso [id number] Ambika Greenvall 02/24/2023 1 HENNA Alonso [id number] Ambika Greenvall 07/20/2023 1 HENNA Alonso [id number] Ambika Greenvall 01/20/2024 1 HENNA Greenvall [id number] Ambika Alonso Notes Date Note Type Note Provider Name and Address Organization Details Recorded Time 07/16/2022 text/html Here for check up today. Home blood pressures are running 130s/80s, 110s/70s. She is taking her irbesartan/hctz 150/12.5 mg daily. Adela Hernandez MD [address] [facility] [address], [place], [address], [employer] 08/08/2022 12:02:31 10/08/2022 text/html 1. Pt in office with report that she has been sick for 3 weeks going on 4 weeks. States they got sick after coming home from their vacation at [place]. States tested positive for covid. States she had the same sx, but tested negative on home tests and PCR. Pt states she has had sore throat, cough, fatigue and brain fog. Pt states sx didn't improve with 2 rounds of abx. States she took the paxlovid and broke out in a rash and had to stop.2. Pt states she has developed a yeast infection from the abx. MAX Tenorio [address] [facility] [address], [place], [address], [employer] 10/08/2022 19:17:47 07/20/2023 text/html Here for wellness exam Adela Hernandez MD [address], [place], [address], [employer] 08/06/2023 07:36:28 01/20/2024 text/html pt is here for f/u MAREN Vizcarra [address], [place], [address], [employer] 01/20/2024 11:21:46 OBGyn Episode No OBEpisode recorded.
--- OUTSIDE RECORDS SUMMARY | 2024-09-07 11:21 | XMS_ITS | Clinical Summary ---
Author Organization [facility] Address [address] [place] [address] Care Team Providers Care Avionics Mechanic Name Role Phone Flavio Guerrero MD Primary Care Provider [phone] Allergies Active Allergy Reactions Criticality Noted Date [...] Pes anserinus bursitis of left knee 01/19/2020 Surgical History Surgery Date Site/Laterality Comments NO PAST SURGERIES Medical History Medical History Date Comments Hypertension Family History Medical History Relation Name Comments Gout Father Arthritis Mother Relation Name Status Comments Father Mother Social History Tobacco Use Types Packs/Day Years [...] on file Sexual Orientation Not on file Obstetrics History Last Filed Vital Signs Vital Sign Reading [...] Plan of Treatment Not on file Insurance [employer] [facility] HMO Care Teams Avionics Mechanic Relationship Specialty Start Date End Date Flavio Guerrero MD [address] [place] [address] PCP - General Family Medicine 12/30/19
--- OUTSIDE RECORDS SUMMARY | 2024-09-07 11:21 | XMS_ITS | Clinical Summary ---
Author Organization [facility] Care Team Providers Care Bilingual Instructor Name Role Phone Unavailable Primary Care Provider Unavailabl e Social History Tobacco Use Types Packs/Day Years Used Date Smoking Tobacco: Never Assessed Comments Unknown Sex and Gender Information Value Date Recorded Sex Assigned at Not on file Legal Sex Female 1:20 PM CDT Gender Identity Not on file Sexual Orientation Not on file Plan of Treatment Health Maintenance Due Date Last Done Comments Hepatitis C Virus (HCV) Screening 1965 TdaP Immunization 1965 Hepatitis B Immunization (1 of 3 - 19+ 3-dose series) 1984 Pap Smear 1986 Cervical Cancer Screening (CCS) 10/26/1995 HPV/Cotest 10/26/1995 Colonoscopy 2010 Colorectal Cancer Screening 2010 Cologuard 10/26/2015 Immunochemical Fecal Occult Blood 10/26/2015 Mammogram 10/26/2015 Pneumococcal Immunization (5 0+ years) (1 of 1 - PCV) 10/26/2015 Zoster Immunization (1 of 2) 10/26/2015 Influenza Immunization (#1) 01/10/202402/08, 02/25/2018 SARS-COV-2 Immunization (3 - season) 2024 08/14/2020, 07/23/2020 Respiratory Syncytial Virus (RSV) Immunization (Adult) (1 - 1-dose 75+ series) 2040 Meningococcal Immunization (ACWY) Aged Out No longer eligible b ased on patient's age to complete this topic Pneumococcal Immunization Combined Aged Out No longer eligible b ased on patient's age to complete this topic Rotavirus Immunization Aged Out No lo nger eligible based on patient's age to complete this topic
== END 2024-09-07 10:09 | disposition home or self-care (01) ==
LOC: ANHIMG 10:11
PROVIDERS: PCP Nurse Practitioner Family; Visit Provider Nurse Practitioner Family
DX: Z12.31 Encounter for screening mammogram for malignant neoplasm of breast (principal)
CPT/HCPCS: 77063; 77067

== ENCOUNTER 2025-03-06 08:11 | Outpatient (CLI) | payer OTHER, SELFPAY ==
--- NOTE | ~2025-03-06 | MMUS_ITS ---
EXAMINATION: US breast LT complete, MM diagnostic bryan LT w royal HISTORY: Nipple discharge TECHNIQUE: Additional 3-D tomosynthesis images of the left breast were performed and synthetic 2-D images were generated. CAD analysis was submitted and interpreted. High resolution complete left breast ultrasound was performed. COMPARISON: Comparison to multiple prior studies sequentially, with oldest reviewed study dated 01/04/2020. BREAST PARENCHYMAL COMPOSITION: Dense: The breasts are heterogeneously dense, which may obscure small masses FINDINGS: MAMMOGRAPHIC FINDINGS: The left breast is stable. No new masses, calcifications or architectural distortion ULTRASOUND: Complete US of all 4 quadrants of the left breast/s and retroareolar region was reviewed. At 1:00, 3 cm from the nipple there is a 5 mm cyst. At 7:00, 5 cm from the nipple there is a 5 mm cyst. At 9:00 in the subareolar location there is an oval hypoechoic circumscribed mass with parallel orientation and posterior acoustic enhancement. No internal vascularity. IMPRESSION: 1. Probable benign 6 mm mass of the left breast at 9:00 in the subareolar location. Additional simple cysts are present in the left breast. 2. Recommend 6 month follow-up Limited left breast ultrasound. BI-RADS category 3, probably benign findings. Reviewed, dictated and finalized at location B. IMPRESSION: 1. Probable benign 6 mm mass of the left breast at 9:00 in the subareolar locat ion. Additional simple cysts are present in the left breast. 2. Recommend 6 month follow-up Limited left breast ultrasound. BI-RADS category 3, probably benign findings.
== END 2025-03-06 08:12 | disposition home or self-care (01) ==
LOC: MICIMG 08:12
PROVIDERS: PCP Family Medicine; Visit Provider Surgery
DX: N60.02 Solitary cyst of left breast (principal); R92.8 Other abnormal and inconclusive findings on diagnostic imaging of breast
CPT/HCPCS: 76641; 77061; 77065; G0279

== ENCOUNTER 2025-03-30 12:29 | Outpatient (CLI) | payer OTHER, SELFPAY ==
--- NOTE | ~2025-03-30 | MR_ITS ---
MR breast BI wo/w con INDICATION:59 year old female presents for imaging evaluation of left nipple discharge. Prior evaluation of patient's nipple discharge with mammography and ultrasound completed on 03/06/2025 reviewed probable benign mass in the left breast at 9:00 subareolar location for which a short-term follow-up was recommended. TECHNIQUE: MRI of the breasts perform using standard protocol pre-and post IV contrast with the following sequences: Axial T2 STIR, axial T1, axial vibrant T1 with fat suppression precontrast and multiphasic postcontrast. MultiHance contrast was administered intravenously. COMPARISON: Mammogram and ultrasound dated 03/06/2025. FINDINGS: There is Heterogeneous fibroglandular tissue that demonstrates Mild and Symmetric enhancement. Right breast: There are no abnormalities on the precontrast sequences. There is minimal background parenchymal enhancement. No enhancing lesions following contrast administration. No areas of enhancement meeting threshold criteria on CAD analysis. Nipple areolar complex is normal in appearance. No evidence of signal abnormalities in the axillary or internal mammary node distributions. LEFT BREAST: There is a 1.4 cm enhancing lesion that has a linear appearance in the inferior slightly medial at anterior depth, approximately 2.4 cm posterior to the nipple (axial postcontrast image 194). This lesion demonstrates washout kinetics. Most likely this lesion represent an intraductal mass. There is moderate background parenchymal nodular enhancement. No other enhancing spiculated lesions following contrast administration. The nipple areolar complex is normal in appearance. No evidence of signal abnormalities in the axillary or internal mammary node distributions.] IMPRESSION: 1: Right breast: No MRI evidence of malignancy. 2. Left breast: 1.4 cm linear enhancing lesion in the inferior slightly medial location 2.4 cm posterior to the nipple. Most likely represent an intraductal mass. Further evaluation is advised. 3. The chest wall and axillary portion of the examination are unremarkable. RECOMMENDATION: Second Look ultrasound left breast. If this lesion is not apparent on the ultrasound examination, consideration should be given to MRI guided biopsy. BI-RADS Category 0: Incomplete: Needs additional imaging evaluation. Reviewed, dictated and finalized at location B. ION MACHINE OPERATOR IMPRESSION: 1: Right breast: No MRI evidence of malignancy. 2. Left breast: 1.4 cm linear enhancing lesion in the inferior slightly medial location 2.4 cm posterior to the nipple. Most likely represent an intraductal m ass. Further evaluation is advised. 3. The chest wall and axillary portion of the examination are unremarkable. RECOMMENDATION: Second Look ultrasound left breast. If this lesion is not apparent on the ultra sound examination, consideration should be given to MRI guided biopsy. BI-RADS Category 0: Incomplete: Needs additional imaging evaluation.
== END 2025-03-30 12:30 | disposition home or self-care (01) ==
PROVIDERS: PCP Family Medicine; Visit Provider Surgery
DX: R92.8 Other abnormal and inconclusive findings on diagnostic imaging of breast (principal)
CPT/HCPCS: 77049; A9577; C8908

== ENCOUNTER 2025-04-17 08:52 | Outpatient (CLI) | payer OTHER, SELFPAY ==
--- NOTE | ~2025-04-17 | US_ITS ---
PROCEDURE(S): US breast LT limited INDICATION(S): R92.8 - Other abnormal and inconclusive findings on diagnostic imaging. Second look after MR. COMPARISON(S): MR from March 30 and other older studies. TECHNIQUE: Grayscale and color Doppler imaging. FINDINGS: Sonography through the medial retroareolar region demonstrates the presence of a bilobed mass with mostly circumscribed margins. It is homogeneous in echotexture and has a maximum dimension of 12 mm. This appears to be oriented toward a duct and is thought to possibly lie in a duct. It probably accounts for the MR finding. IMPRESSION: Solid mass as described for which ultrasound-guided core biopsy is recommended. After marker placement, repeat MR is recommended to verify that the MR finding and the ultrasound finding represent the same structure. If they do not, MR guided biopsy may be necessary. BI-RADS 4 - Suspicious for malignancy. Tissue diagnosis is recommended. Reviewed, dictated and finalized at location B. TONE MACHINE OPERATOR IMPRESSION: Solid mass as described for which ultrasound-guided core biopsy is recommended. After marker placement, repeat MR is recommended to verify that the MR finding and the ultrasound finding represent the same structure. If they do not, MR gu ided biopsy may be necessary. BI-RADS 4 - Suspicious for malignancy. Tissue diagnosis is recommended.
== END 2025-04-17 08:53 | disposition home or self-care (01) ==
LOC: CHSIMG 08:53
PROVIDERS: PCP Family Medicine; Visit Provider Surgery
DX: N64.52 Nipple discharge (principal); R92.8 Other abnormal and inconclusive findings on diagnostic imaging of breast
CPT/HCPCS: 76642

== ENCOUNTER 2025-04-28 08:44 | Outpatient (CLI) | payer OTHER, SELFPAY ==
--- NOTE | ~2025-04-28 | MMUS_ITS ---
PROCEDURE: US breast biopsy LT w image, MM post biopsy diagnostic LT CLINICAL HISTORY: 59-year-old female with suspicious probable intraductal mass in the medial retroareolar region of the left breast presents for ultrasound- guided core needle biopsy procedure. COMPARISON: 04/17/2025 Following informed consent including risks, benefits, and possible complications, the patient was brought to the ultrasound suite. A time-out procedure was performed. A preliminary ultrasound of the left breast was performed, redemonstrating an hypoechoic mass with internal vascularity which appears intraductal in the medial subareolar region. The patient was prepped and draped in the usual sterile fashion. 1% lidocaine was instilled into the subcutaneous tissues. 1% lidocaine without epinephrine was injected into the deep tissues just inferior to the lesion. Approximately 15cc lidocaine was administered. A small skin poonam was made. Multiple core samples were obtained with a 14-gauge multi pass biopsy needle. A post biopsy metal marker was placed at the biopsy site. Postprocedural mammogram of the left breast in craniocaudal and mediolateral projections reveal the post biopsy metal marker in good position. BREAST PARENCHYMAL COMPOSITION: Dense: The breasts are heterogeneously dense, which may obscure small masses The patient tolerated the procedure well and was without immediate postprocedural complications. IMPRESSION: Successful ultrasound guided biopsy of left breast intraductal mass. A post biopsy metal marker was placed at the biopsy site, which is seen on postprocedural mammogram. The patient tolerated the procedure well without immediate postprocedure complications. The patient was given postprocedural instructions and sent home in stable condition. Pathology report pending Reviewed, dictated and finalized at location A. BOARD PANEL PRINTER IMPRESSION: Successful ultrasound guided biopsy of left breast intraductal mass . A post biopsy metal marker was placed at the biopsy site, which is seen on po stprocedural mammogram. The patient tolerated the procedure well without immediate postprocedure compli cations. The patient was given postprocedural instructions and sent home in sta ble condition. Pathology report pending
--- OUTSIDE RECORDS SUMMARY | 2025-04-28 08:59 | XMS_ITS | Clinical Summary ---
Author Organization [facility] Care Team Providers Care Experimental Psychologist Name Role Phone Unavailable Primary Care Provider [...] Cervical Cancer Screening (CCS) 10/26/1995 HPV/Cotest 10/26/1995 Cologuard 2010 Colonoscopy 2010 Colorectal Cancer Screening 2010 Immunochemical Fecal Occult Blood 2010 Pneumococcal Immunization (5 0+ years) (1 of 1 - PCV) 10/26/2015 Zoster Immunization (1 of 2) 10/26/2015 Influenza Immunization (#1) 01/09/202502/08, 02/25/2018 SARS-COV-2 Immunization ( - 2024- season) 2025 08/14/2020, 07/23/2020 Respiratory Syncytial Virus (RSV) Immunization (Adult) (1 - 1-dose 75+ series) 2040 Human Papillomavirus (HPV) Immunization Aged Out No longer eligible b ased on patient's age to complete this topic Meningococcal Immunization (ACWY) Aged Out No longer eligible b ased on patient's age to complete this topic Rotavirus Immunization Aged Out No lo nger eligible based on patient's age to complete this topic
--- OUTSIDE RECORDS SUMMARY | 2025-04-28 08:59 | XMS_ITS | Clinical Summary ---
Author Organization [facility] Address [address] [place] [address] Care Team Providers Care Operations Executive Name Role Phone Flavio Guerrero MD Primary Care Provider [phone] Allergies Active Allergy Reactions Criticality Noted Date [...] 3:25 PM CDT Height 160 cm (5' 3) 02/16/2020 3:25 PM CDT Body Mass Index 32.77 02/16/2020 3:25 PM CDT Plan of Treatment Not on file Insurance [employer] [facility] HMO Care Teams Operations Executive Relationship Specialty Start Date End Date Flavio Guerrero MD [address] [place] [address] PCP - General Family Medicine 12/30/19
--- NOTE | 2025-04-28 10:32 | S_PTH ---
PATIENT: Ambika Alonso LOC: [facility] U#:[id number] AGE/SX: 59/F ROOM: RE04/28/[address]: Yuliya Jimenez MD : 1965 BED: DIS: 04/28/2025 SPEC #: [id number] RECD: 04/28/25 12:08 STATUS: EMILY REJerel #: [id number] MARCELLA: 04/28/25 10:[address]: Yuliya Jimenez DEPT: [facility] Surgical RECD BY: Swetha Solorzano ENTERED: 04/28/25 12:09 SP TYPE: Surgical OTHR DR: Scarlett Snyder DO Tissues: A - Breast Biopsy Procedures: Hematoxylin and Eosin Stain Gross and Microscopic Level 4
== END 2025-04-28 08:45 | disposition home or self-care (01) ==
PROVIDERS: PCP Family Medicine; Visit Provider Surgery
DX: D24.2 Benign neoplasm of left breast (principal); N64.52 Nipple discharge; R92.8 Other abnormal and inconclusive findings on diagnostic imaging of breast
CPT/HCPCS: 19083; 77065; 88305; A4648